=== PATIENT | male | born 1995 | race Hispanic/Latino ===

== ENCOUNTER 2016-12-02 00:04 | Emergency (ER) | payer OTHER ==
[~2016-12-02] VITALS: Ht 188 cm; Wt 73.4 kg
[~2016-12-02 00:04] MED LIST: AUGMENTIN875 MG PO; CELEBREX100 MG PO; CLINDAMYCIN HC150 MG PO; DIAZEPAM5 MG PO; FLEXERIL10 MG PO; FLOVENT 11120 INHALA IH; LIDOCAINE20 MG/1 M5 PO; LIDODERM 5% P1 PATCH TD; MOBIC7.5 MG PO; MONTELUKAST SOD10 MG PO; MOTRIN600 MG PO; MOTRIN800 MG PO; NAPROSYN375 MG PO; NORCO 5/3251 TABLET PO; NORCO 7.5/321 TABLET PO; OXCARBAZEPINE300 MG PO; OXCARBAZEPINE600 MG PO; OXYCODONE HCL5 MG PO; PEN-VEE K,VEET500 MG PO; PREDNISONE20 M1 PO; PREDNISONE20 MG PO; PREDNISONE50 MG PO; PREVACID30 MG PO; PROVENTIL,200 INHALA IH; SINGULAIR10 MG PO; SINGULAIR5 MG PO; SKELAXIN800 MG PO; TAGAMET200 MG PO; TRILEPTAL150 MG PO; TRILEPTAL300 MG PO; ULTRAM50 MG PO; VALIUM5 MG PO; VENTOLIN HFA18 GM IH; VYVANSE20 MG PO; VYVANSE70 MG PO; ZOLOFT50 M1 PO
[2016-12-02] MEDS ORDERED: NORCO 5/3251 TABLET PO (00:32)
[2016-12-02] MEDS ORDERED: ZOFRAN ODT4 MG PO (00:32)
[2016-12-02] MEDS ORDERED: PEN-VEE K,VEET500 MG PO (00:32)
[2016-12-02 00:37] VITALS: BP 120/76
== END 2016-12-02 00:45 | disposition home or self-care (01) ==
LOC: EME 00:04
DX: K04.7 Periapical abscess without sinus (principal); F17.200 Nicotine dependence, unspecified, uncomplicated; Z88.1 Allergy status to other antibiotic agents
CPT/HCPCS: 99281; 99284

== ENCOUNTER 2016-12-18 15:05 | Emergency (ER) | payer OTHER ==
[~2016-12-18] VITALS: Ht 188 cm; Wt 65.3 kg
[~2016-12-18 15:05] MED LIST changes: +ZOFRAN ODT4 MG PO
[2016-12-18] MEDS ORDERED: TRILEPTAL300 MG PO (15:12)
[2016-12-18] MEDS ORDERED: VYVANSE60 MG PO (15:13)
[2016-12-18 16:42] LABS: HEMATOCRIT 42.9 % (38.0-50.0); MCH 26.4 PG (29.0-34.0); MCHC 33.8 G/DL (30.0-36.0); MCV 78.1 FL (86-99); PLATELET COUNT 302 K/uL (156-360); RBC DIS.WIDTH-CV 14.1 % (11.8-14.6); RBC DIS.WIDTH-SD 39.6 % (39-53); RED BLOOD COUNT 5.49 M/uL (4.00-5.50); WHITE BLOOD COUNT 11.6 K/uL (4.1-10.2)
[2016-12-18 16:50] LABS: CHLORIDE 106 mEq/L (99-109); SODIUM 139 mEq/L (136-147)
[2016-12-18 16:52] LABS: GLUCOSE 120 mg/dL (70-99)
[2016-12-18 16:53] LABS: ANION GAP 15 MEQ/L (2-14)
[2016-12-18 16:56] LABS: GFR ESTIMATE (CALCULATED) > 59 mL/min/; UREA NITROGEN (BUN) 13 mg/dL (9-23)
[2016-12-18 16:58] LABS: CREATINE KINASE 190 IU/L (1-294); TOTAL CK 190 IU/L (1-294)
[2016-12-18 17:04] LABS: CK-MB 2.2 ng/mL (0.0-4.9)
[2016-12-18 17:35] LABS: SAMPLE HEMOLYSIS CHECK 0; SAMPLE ICTERIC CHECK 0; SAMPLE LIPEMIA CHECK 0
[2016-12-18 18:08] VITALS: BP 128/64
[2016-12-18] MEDS ORDERED: LIDOCAINE20 MG/1 M5 PO (18:24)
== END 2016-12-18 18:37 | disposition home or self-care (01) ==
LOC: EME 15:05
PROVIDERS: Emergency Medicine
DX: R56.9 Unspecified convulsions (principal); S01.512A Laceration without foreign body of oral cavity, initial encounter; X58.XXXA Exposure to other specified factors, initial encounter; J45.909 Unspecified asthma, uncomplicated; K21.9 Gastro-esophageal reflux disease without esophagitis; F17.200 Nicotine dependence, unspecified, uncomplicated
CPT/HCPCS: 80048; 80156; 82550; 82553; 85027; 99281; 99284

== ENCOUNTER 2016-12-22 12:40 | Emergency (ER) | payer OTHER ==
[~2016-12-22] VITALS: Ht 185.4 cm; Wt 71.8 kg
[~2016-12-22 12:40] MED LIST changes: +VYVANSE60 MG PO
[2016-12-22 12:43] VITALS: BP 145/84
[2016-12-22 14:31] LABS: HEMATOCRIT 42.7 % (38.0-50.0); MCH 26.2 PG (29.0-34.0); MCHC 32.8 G/DL (30.0-36.0); MEAN PLAT.VOLUME 10.2 uM^3 (9.0-12.4); PLATELET COUNT 236 K/uL (156-360); RBC DIS.WIDTH-CV 13.8 % (11.8-14.6); RBC DIS.WIDTH-SD 39.8 % (39-53); RED BLOOD COUNT 5.34 M/uL (4.00-5.50); WHITE BLOOD COUNT 6.1 K/uL (4.1-10.2)
[2016-12-22 14:38] LABS: CHLORIDE 102 mEq/L (99-109); POTASSIUM 3.8 mEq/L (3.7-5.4); SODIUM 138 mEq/L (136-147)
[2016-12-22 14:39] LABS: GLUCOSE 105 mg/dL (70-99)
[2016-12-22 14:41] LABS: ANION GAP 11 MEQ/L (2-14)
[2016-12-22 14:43] LABS: GFR ESTIMATE (CALCULATED) > 59 mL/min/
[2016-12-22 14:44] LABS: UREA NITROGEN (BUN) 7 mg/dL (9-23)
[2016-12-22 15:23] LABS: ADD MIUA? YES; BILIRUBIN NEGATIVE; BLOOD TRACE; COLOR YELLOW ((YELLOW)); GLUCOSE (STRIP) NEGATIVE; KETONES NEGATIVE; LEUKOCYTES NEGATIVE; NITRITE NEGATIVE; PROTEIN (STRIP) NEGATIVE; SPECIFIC GRAVITY 1.017 (1.000-1.030); UROBILINOGEN 0.2 MG/DL (0.2-1.0)
[2016-12-22 15:41] LABS: THC CANNABINOIDS PRESUMPTIVE POSITIVE (50 ng/mL)
[2016-12-22 15:42] LABS: ADD MEDTOX COMMENT Y; AMPHETAMINE PRESUMPTIVE POSITIVE (500 ng/mL); BARBITURATES NEGATIVE (200 ng/mL); BENZODIAZEPINES PRESUMPTIVE POSITIVE (150 ng/mL); COCAINE PRESUMPTIVE POSITIVE (150 ng/mL); INTERNAL CONTROLS VALID? YES; METHADONE NEGATIVE (200 ng/mL); METHAMPHETAMINE PRESUMPTIVE POSITIVE (500 ng/mL); OPIATES (MORPHINE) PRESUMPTIVE POSITIVE (100 ng/mL); OXYCODONE PRESUMPTIVE POSITIVE (100 ng/mL); PHENCYCLIDINE NEGATIVE (25 ng/mL); PROPOXYPHENE NEGATIVE (300 ng/mL); TRICYCLIC ANTIDEPRESSANTS NEGATIVE (300 ng/mL)
[2016-12-22 16:04] LABS: RED BLOOD CELLS 0-5 /HPF (0-5); WHITE BLOOD CELLS RARE /HPF (0-5)
[2016-12-22 16:05] LABS: AMORPHOUS URATES CRYSTALS 1+; BACTERIA RARE; CALCIUM OXALATE CRYSTALS RARE; CASTS NONE SEEN /LPF; CRYSTALS PRESENT; EPITHELIAL CELLS RARE; MUCUS RARE; UCUL ADDED? NO
[2016-12-22 16:32] LABS: BENZODIAZEPINES, URINE SCREEN POSITIVE (200 ng/mL)
== END 2016-12-22 15:50 | disposition left against medical advice (07) ==
LOC: EME 12:40
PROVIDERS: Physician Assistant
DX: F19.10 Other psychoactive substance abuse, uncomplicated (principal); R51 Headache; K04.7 Periapical abscess without sinus; M54.9 Dorsalgia, unspecified; F17.200 Nicotine dependence, unspecified, uncomplicated
CPT/HCPCS: 70450; 72100; 80048; 80156; 81003; 84999; 85027; 99281; 99284

== ENCOUNTER 2017-02-06 11:41 | Emergency (ER) | payer OTHER ==
[~2017-02-06] VITALS: Ht 188 cm; Wt 73.8 kg
[2017-02-06] MEDS ORDERED: PERCOCET 5/31 TABLET PO (12:04)
[2017-02-06] MEDS ORDERED: PEN-VEE K,VEET500 MG PO (12:04)
[2017-02-06] MEDS ORDERED: DIVALPROEX SOD500 MG PO (12:18)
[2017-02-06] MEDS ORDERED: OXCARBAZEPINE300 MG PO (12:18)
[2017-02-06 12:21] VITALS: BP 116/84
== END 2017-02-06 12:22 | disposition home or self-care (01) ==
LOC: EME 11:41 → RME 11:41
DX: K02.9 Dental caries, unspecified (principal); R22.0 Localized swelling, mass and lump, head; J45.909 Unspecified asthma, uncomplicated; K21.9 Gastro-esophageal reflux disease without esophagitis; R56.9 Unspecified convulsions; F17.200 Nicotine dependence, unspecified, uncomplicated
CPT/HCPCS: 99281; 99284

== ENCOUNTER 2017-04-20 23:36 | Emergency (ER) | payer OTHER ==
[~2017-04-20] VITALS: Ht 188 cm; Wt 70.9 kg
[~2017-04-20 23:36] MED LIST changes: +DIVALPROEX SOD500 MG PO; +PERCOCET 5/31 TABLET PO
[2017-04-21] MEDS ORDERED: PEN-VEE K,VEET500 MG PO (02:27)
[2017-04-21] MEDS ORDERED: NORCO 5/3251 TABLET PO (02:27)
[2017-04-21 02:37] VITALS: BP 125/80
== END 2017-04-21 02:43 | disposition home or self-care (01) ==
LOC: EME 23:36
DX: K08.89 Other specified disorders of teeth and supporting structures (principal); F17.200 Nicotine dependence, unspecified, uncomplicated
CPT/HCPCS: 99281; 99284

== ENCOUNTER 2017-07-30 16:39 | Emergency (ER) | payer OTHER ==
[~2017-07-30] VITALS: Ht 188 cm; Wt 67.9 kg
[2017-07-30 17:39] LABS: EOSINOPHIL (%) 1.4 % (0-5); EOSINOPHIL COUNT 0.1 K/uL (0-0.3); HEMATOCRIT 44.6 % (38.0-50.0); IMMATURE GRANULOCYTE (%) 0.2 % (0.0-0.7); INSTRUMENT ABS NEUTROPHIL CT 3.2 K/uL; LYMPHOCYTE COUNT 2.2 K/uL (1.0-2.8); MCH 26.2 PG (29.0-34.0); MCHC 32.1 G/DL (30.0-36.0); MCV 81.7 FL (86-99); MEAN PLAT.VOLUME 9.9 uM^3 (9.0-12.4); MONOCYTE (%) 11.6 % (3-12); MONOCYTE COUNT 0.7 K/uL (0-0.8); NEUTROPHIL COUNT 3.2 K/uL (1.8-6.4); PLATELET COUNT 269 K/uL (156-360); RBC DIS.WIDTH-CV 13.2 % (11.8-14.6); RBC DIS.WIDTH-SD 39.3 % (39-53); RED BLOOD COUNT 5.46 M/uL (4.00-5.50); WHITE BLOOD COUNT 6.3 K/uL (4.1-10.2)
[2017-07-30 17:53] LABS: CHLORIDE 105 mEq/L (99-109); POTASSIUM 4.1 mEq/L (3.7-5.4); SODIUM 141 mEq/L (136-147)
[2017-07-30 17:55] LABS: GLUCOSE 98 mg/dL (70-99)
[2017-07-30 17:56] LABS: ANION GAP 10 MEQ/L (2-14)
[2017-07-30 17:59] LABS: GFR ESTIMATE (CALCULATED) > 59 mL/min/
[2017-07-30 18:00] LABS: UREA NITROGEN (BUN) 9 mg/dL (9-23)
[2017-07-30 19:01] LABS: ADD MIUA? YES; BILIRUBIN NEGATIVE; BLOOD SMALL; COLOR YELLOW ((YELLOW)); GLUCOSE (STRIP) NEGATIVE; KETONES NEGATIVE; LEUKOCYTES NEGATIVE; NITRITE NEGATIVE; PROTEIN (STRIP) NEGATIVE; SPECIFIC GRAVITY 1.013 (1.000-1.030); UROBILINOGEN 0.2 MG/DL (0.2-1.0)
[2017-07-30 19:31] LABS: BACTERIA RARE /HPF; EPITHELIAL CELLS NONE SEEN /HPF; MUCUS NONE SEEN /LPF; WHITE BLOOD CELLS 0-5 /HPF (0-5)
[2017-07-30] MEDS ORDERED: DEPAKOTE500 MG PO (20:03)
[2017-07-30 21:57] VITALS: BP 120/74
== END 2017-07-30 22:06 | disposition home or self-care (01) ==
LOC: EME 16:39
PROVIDERS: Emergency Medicine
DX: R56.9 Unspecified convulsions (principal); F17.200 Nicotine dependence, unspecified, uncomplicated; K21.9 Gastro-esophageal reflux disease without esophagitis; J45.909 Unspecified asthma, uncomplicated
CPT/HCPCS: 80048; 80164; 81003; 85025; 93005; 99281; 99285; J2405; J7030

== ENCOUNTER 2017-10-18 13:12 | Emergency (ER) | payer OTHER ==
[~2017-10-18] VITALS: Ht 188 cm; Wt 74.5 kg
[~2017-10-18 13:12] MED LIST changes: +DEPAKOTE500 MG PO
[2017-10-18 15:58] VITALS: BP 123/82
== END 2017-10-18 15:59 | disposition left against medical advice (07) ==
LOC: EME 13:12
DX: G40.909 Epilepsy, unspecified, not intractable, without status epilepticus (principal); S09.90XA Unspecified injury of head, initial encounter; W22.09XA Striking against other stationary object, initial encounter; Y92.002 Bathroom of unspecified non-institutional (private) residence as the place of occurrence of the external cause; J45.909 Unspecified asthma, uncomplicated; F32.9 Major depressive disorder, single episode, unspecified; K21.9 Gastro-esophageal reflux disease without esophagitis; M41.9 Scoliosis, unspecified; F17.200 Nicotine dependence, unspecified, uncomplicated; Z88.6 Allergy status to analgesic agent; Z88.1 Allergy status to other antibiotic agents
CPT/HCPCS: 80048; 80156; 80184; 80185; 81003; 85027; 99281; 99284

== ENCOUNTER 2018-02-11 21:00 | Emergency (ER) | payer OTHER ==
[~2018-02-11] VITALS: Ht 188 cm; Wt 75.5 kg
[2018-02-11] MEDS ORDERED: LIDODERM 5% P1 PATCH TD (22:15)
[2018-02-11] MEDS ORDERED: VALIUM5 MG PO (22:15)
[2018-02-11] MEDS ORDERED: INDOCIN50 MG PO (22:15)
[2018-02-11 23:25] VITALS: BP 138/80
== END 2018-02-11 23:26 | disposition home or self-care (01) ==
LOC: EME 21:00
DX: S39.012A Strain of muscle, fascia and tendon of lower back, initial encounter (principal); X50.0XXA Overexertion from strenuous movement or load, initial encounter; Y93.H1 Activity, digging, shoveling and raking; Z88.6 Allergy status to analgesic agent; Z88.1 Allergy status to other antibiotic agents
CPT/HCPCS: 99281; 99284; J2270

== ENCOUNTER 2018-03-23 03:59 | Emergency (ER) | payer OTHER ==
[~2018-03-23] VITALS: Ht 188 cm; Wt 73.6 kg
[~2018-03-23 03:59] MED LIST changes: +INDOCIN50 MG PO
[2018-03-23] MEDS ORDERED: NORCO 5/3251 TABLET PO (04:48)
[2018-03-23 04:58] VITALS: BP 122/77
== END 2018-03-23 04:58 | disposition home or self-care (01) ==
LOC: EME 03:59
PROC: 2W3CX1Z Immobilization of Right Lower Arm using Splint (ICD-10-PCS; principal; 2018-03-23)
DX: S63.91XA Sprain of unspecified part of right wrist and hand, initial encounter (principal); W22.09XA Striking against other stationary object, initial encounter; Z88.6 Allergy status to analgesic agent; Z88.1 Allergy status to other antibiotic agents; Z88.8 Allergy status to other drugs, medicaments and biological substances
CPT/HCPCS: 73130; 99281; 99283

== ENCOUNTER 2018-03-31 14:32 | Emergency (ER) | payer OTHER ==
[~2018-03-31] VITALS: Ht 188 cm; Wt 70.9 kg
[2018-03-31 15:25] LABS: HEMATOCRIT 43.7 % (38.0-50.0); HEMOGLOBIN 14.3 G/DL (12.5-16.6); MCH 27.2 PG (29.0-34.0); MCHC 32.7 G/DL (30.0-36.0); MCV 83.1 FL (86-99); PLATELET COUNT 271 K/uL (156-360); RBC DIS.WIDTH-CV 13.5 % (11.8-14.6); RBC DIS.WIDTH-SD 41.1 % (39-53); RED BLOOD COUNT 5.26 M/uL (4.00-5.50); WHITE BLOOD COUNT 6.3 K/uL (4.1-10.2)
[2018-03-31 15:35] LABS: ALBUMIN 4.8 g/dL (3.2-4.8)
[2018-03-31 15:36] LABS: CHLORIDE 107 mEq/L (99-109); POTASSIUM 4.1 mEq/L (3.7-5.4); SODIUM 142 mEq/L (136-147)
[2018-03-31 15:38] LABS: GLUCOSE 101 mg/dL (70-99); TOTAL PROTEIN 8.1 g/dL (6.4-8.3)
[2018-03-31 15:40] LABS: TOTAL BILIRUBIN 0.3 mg/dL (0.0-1.0)
[2018-03-31 15:41] LABS: ALKALINE PHOSPHATASE 68 IU/L (3-129)
[2018-03-31 15:42] LABS: CREATININE 1.1 mg/dL (0.6-1.3); GFR ESTIMATE (CALCULATED) > 59 mL/min/ (58.99-99999)
[2018-03-31 15:43] LABS: AST (GOT) 17 IU/L (2-34); UREA NITROGEN (BUN) 9 mg/dL (9-23)
[2018-03-31 15:45] LABS: ALT (GPT) 18 IU/L (3-49)
[2018-03-31] MEDS ORDERED: REMERON15 M2 PO (16:32)
[2018-03-31 16:46] VITALS: BP 104/63
== END 2018-03-31 16:48 | disposition home or self-care (01) ==
LOC: EME 14:32
PROVIDERS: Nurse Practitioner Family
DX: F43.9 Reaction to severe stress, unspecified (principal); R10.13 Epigastric pain; G47.00 Insomnia, unspecified; F43.23 Adjustment disorder with mixed anxiety and depressed mood; J45.909 Unspecified asthma, uncomplicated; K21.9 Gastro-esophageal reflux disease without esophagitis; M41.9 Scoliosis, unspecified; F17.200 Nicotine dependence, unspecified, uncomplicated; Z88.6 Allergy status to analgesic agent; Z88.1 Allergy status to other antibiotic agents
CPT/HCPCS: 80053; 85027; 90839; 99281; 99284

== ENCOUNTER 2018-04-08 07:22 | Observation (INO) | payer OTHER ==
[~2018-04-08] VITALS: Ht 188 cm; Wt 70.3 kg
[~2018-04-08 07:22] MED LIST changes: +REMERON15 M2 PO
[2018-04-08 08:09] LABS: BASOPHIL (%) 0.1 % (0-1); EOSINOPHIL (%) 0.6 % (0-5); EOSINOPHIL COUNT 0.1 K/uL (0-0.3); HEMATOCRIT 40.2 % (38.0-50.0); HEMOGLOBIN 13.1 G/DL (12.5-16.6); IMMATURE GRANULOCYTE (%) 0.2 % (0.0-0.7); LYMPHOCYTE COUNT 1.9 K/uL (1.0-2.8); MCH 27.3 PG (29.0-34.0); MCHC 32.6 G/DL (30.0-36.0); MCV 83.9 FL (86-99); MONOCYTE (%) 10.4 % (3-12); MONOCYTE COUNT 0.9 K/uL (0-0.8); NEUTROPHIL (%) 67.7 % (45-76); PLATELET COUNT 210 K/uL (156-360); RBC DIS.WIDTH-CV 13.6 % (11.8-14.6); RBC DIS.WIDTH-SD 42.2 % (39-53); RED BLOOD COUNT 4.79 M/uL (4.00-5.50); WHITE BLOOD COUNT 8.8 K/uL (4.1-10.2)
[2018-04-08 08:46] LABS: CHLORIDE 106 MEQ/L (99-109); GFR ESTIMATE (CALCULATED) > 59 mL/min/ (58.99-99999); GLUCOSE 106 mg/dL (70-99); POTASSIUM 3.7 MEQ/L (3.7-5.4); SODIUM 138 MEQ/L (136-147); UREA NITROGEN (BUN) 9 mg/dL (9-23)
[2018-04-08] MEDS ORDERED: VIMPAT150 MG PO (13:10)
[2018-04-08] MEDS ORDERED: VENTOLIN HFA18 GM IH (13:11)
[2018-04-08] MEDS ORDERED: MIRTAZAPINE15 MG PO (13:17)
[2018-04-08 14:38] VITALS: BP 124/62
[2018-04-08 19:40] VITALS: BP 116/58
[2018-04-08 23:41] VITALS: BP 109/58
[2018-04-09] MEDS ORDERED: ALBUTEROL1.25 MG/3 IH (20:34)
[2018-04-09] MEDS ORDERED: MELATIN3 MG PO (20:36)
== END 2018-04-09 00:18 | disposition left against medical advice (07) ==
LOC: EME 07:22 → EDOF 12:50 → 4SOUTH 12:50 → ENRESERV 12:51 → 4SOUTH 14:17 → ENRESERV 15:59 → 4SOUTH 16:43
PROVIDERS: Emergency Medicine; Hospitalist
DX: G40.909 Epilepsy, unspecified, not intractable, without status epilepticus (principal); F43.25 Adjustment disorder with mixed disturbance of emotions and conduct; F32.9 Major depressive disorder, single episode, unspecified; S61.421A Laceration with foreign body of right hand, initial encounter; Z91.14 Patient's other noncompliance with medication regimen; F12.90 Cannabis use, unspecified, uncomplicated; Z88.8 Allergy status to other drugs, medicaments and biological substances; Z82.3 Family history of stroke; Z83.3 Family history of diabetes mellitus; Z88.1 Allergy status to other antibiotic agents; Z88.6 Allergy status to analgesic agent; F17.200 Nicotine dependence, unspecified, uncomplicated
CPT/HCPCS: 70450; 73130; 80048; 80306 90; 81003; 82948; 84146; 85025; 93005; 95819; 99202; 99281; 99285; G0378; J1953; J2060; J2250; J7030; J7050

== ENCOUNTER 2018-04-09 02:48 | Observation (INO) | payer OTHER ==
[~2018-04-09] VITALS: Ht 188 cm; Wt 81.6 kg
[~2018-04-09 02:48] MED LIST changes: +MIRTAZAPINE15 MG PO; +VIMPAT150 MG PO
[2018-04-09 03:49] LABS: BASOPHIL (%) 0.1 % (0-1); EOSINOPHIL (%) 0.8 % (0-5); EOSINOPHIL COUNT 0.1 K/uL (0-0.3); HEMATOCRIT 39.8 % (38.0-50.0); IMMATURE GRANULOCYTE (%) 0.2 % (0.0-0.7); LYMPHOCYTE COUNT 1.7 K/uL (1.0-2.8); MCH 27.4 PG (29.0-34.0); MCHC 32.7 G/DL (30.0-36.0); MONOCYTE (%) 9.6 % (3-12); MONOCYTE COUNT 0.8 K/uL (0-0.8); NEUTROPHIL (%) 69.3 % (45-76); NEUTROPHIL COUNT 5.9 K/uL (1.8-6.4); PLATELET COUNT 208 K/uL (156-360); RBC DIS.WIDTH-CV 13.8 % (11.8-14.6); RBC DIS.WIDTH-SD 42.9 % (39-53); RED BLOOD COUNT 4.74 M/uL (4.00-5.50); WHITE BLOOD COUNT 8.5 K/uL (4.1-10.2)
[2018-04-09 04:05] LABS: CHLORIDE 105 mEq/L (99-109); POTASSIUM 3.8 mEq/L (3.7-5.4); SODIUM 142 mEq/L (136-147)
[2018-04-09 04:06] LABS: GLUCOSE 112 mg/dL (70-99)
[2018-04-09 04:10] LABS: GFR ESTIMATE (CALCULATED) > 59 mL/min/ (58.99-99999); SERUM ETHYL ALCOHOL < 10 mg/dL
[2018-04-09 04:11] LABS: UREA NITROGEN (BUN) 8 mg/dL (9-23)
[2018-04-09 04:13] LABS: CREATINE KINASE 1854 IU/L (1-294)
[2018-04-09 05:25] LABS: APPEARANCE CLEAR ((CLEAR)); BILIRUBIN NEGATIVE; BLOOD NEGATIVE; COLOR YELLOW ((YELLOW)); GLUCOSE (STRIP) NEGATIVE; KETONES 5; LEUKOCYTES TRACE; NITRITE NEGATIVE; PROTEIN (STRIP) NEGATIVE
[2018-04-09 05:37] LABS: BACTERIA NONE SEEN /HPF; EPITHELIAL CELLS RARE /HPF; MUCUS TRACE /LPF; UCUL ADDED? YES
[2018-04-09 05:44] LABS: AMPHETAMINE NEGATIVE (500 ng/mL); BARBITURATES NEGATIVE (200 ng/mL); BENZODIAZEPINES PRESUMPTIVE POSITIVE (150 ng/mL); BUPRENORPHINE NEGATIVE (10 ng/mL); COCAINE PRESUMPTIVE POSITIVE (150 ng/mL); METHADONE NEGATIVE (200 ng/mL); METHAMPHETAMINE NEGATIVE (500 ng/mL); OPIATES (MORPHINE) PRESUMPTIVE POSITIVE (100 ng/mL); OXYCODONE PRESUMPTIVE POSITIVE (100 ng/mL); PHENCYCLIDINE NEGATIVE (25 ng/mL); PROPOXYPHENE NEGATIVE (300 ng/mL); THC CANNABINOIDS PRESUMPTIVE POSITIVE (50 ng/mL); TRICYCLIC ANTIDEPRESSANTS NEGATIVE (300 ng/mL)
[2018-04-09 06:30] LABS: BENZODIAZEPINES, URINE SCREEN POSITIVE (200 ng/mL)
[2018-04-09 07:54] LABS: MAGNESIUM 2.1 mg/dl (1.3-2.7)
[2018-04-09 13:18] VITALS: BP 132/83
[2018-04-09 15:45] VITALS: BP 125/77
[2018-04-09 19:29] VITALS: BP 121/65
[2018-04-09] MEDS ORDERED: ALBUTEROL1.25 MG/3 IH (20:34)
[2018-04-09] MEDS ORDERED: MELATIN3 MG PO (20:36)
[2018-04-10 01:00] VITALS: BP 124/70
[2018-04-10 05:17] LABS: BASOPHIL (%) 0 % (0-1); EOSINOPHIL (%) 1.7 % (0-5); EOSINOPHIL COUNT 0.1 K/uL (0-0.3); HEMATOCRIT 36.6 % (38.0-50.0); HEMOGLOBIN 11.5 G/DL (12.5-16.6); IMMATURE GRANULOCYTE (%) 0.2 % (0.0-0.7); LYMPHOCYTE (%) 38.9 % (15-42); LYMPHOCYTE COUNT 2.3 K/uL (1.0-2.8); MCH 26.4 PG (29.0-34.0); MCHC 31.4 G/DL (30.0-36.0); MCV 84.1 FL (86-99); MONOCYTE (%) 10.6 % (3-12); MONOCYTE COUNT 0.6 K/uL (0-0.8); NEUTROPHIL (%) 48.6 % (45-76); NEUTROPHIL COUNT 2.9 K/uL (1.8-6.4); PLATELET COUNT 198 K/uL (156-360); RBC DIS.WIDTH-CV 13.6 % (11.8-14.6); RED BLOOD COUNT 4.35 M/uL (4.00-5.50); WHITE BLOOD COUNT 5.9 K/uL (4.1-10.2)
[2018-04-10 05:34] LABS: ALBUMIN 3.9 G/DL (3.2-4.8); CHLORIDE 111 MEQ/L (99-109); POTASSIUM 3.8 MEQ/L (3.7-5.4); SODIUM 143 MEQ/L (136-147); TOTAL BILIRUBIN 0.6 MG/DL (0.0-1.0)
[2018-04-10 05:39] LABS: ALKALINE PHOSPHATASE 49 IU/L (3-129); ALT (GPT) 21 IU/L (3-49); AST (GOT) 35 IU/L (2-34); CREATININE 0.9 MG/DL (0.6-1.3); GFR ESTIMATE (CALCULATED) > 59 mL/min/ (58.99-99999); GLUCOSE 87 mg/dL (70-99); TOTAL PROTEIN 6.1 G/DL (6.4-8.3); UREA NITROGEN (BUN) 3 mg/dL (9-23)
[2018-04-10 07:12] LABS: CREATINE KINASE 855 IU/L (1-294)
[2018-04-10 07:46] VITALS: BP 117/74
[2018-04-10 23:42] VITALS: BP 125/73
[2018-04-11 05:51] LABS: HEMATOCRIT 38.2 % (38.0-50.0); HEMOGLOBIN 12.2 G/DL (12.5-16.6); MCV 84.3 FL (86-99)
[2018-04-11 06:19] LABS: CHLORIDE 109 MEQ/L (99-109); GFR ESTIMATE (CALCULATED) > 59 mL/min/ (58.99-99999); GLUCOSE 86 mg/dL (70-99); POTASSIUM 4.2 MEQ/L (3.7-5.4); SODIUM 144 MEQ/L (136-147); UREA NITROGEN (BUN) 3 mg/dL (9-23)
[2018-04-11 07:46] VITALS: BP 107/57
[2018-04-11] MEDS ORDERED: CEPHALEXIN500 MG PO (10:24)
[2018-04-11] MEDS ORDERED: NICOTINE PATCH1 EAC1 TD (10:25)
[2018-04-11] MEDS ORDERED: ESCITALOPRAM OX10 MG PO (10:29)
[2018-04-11] MEDS ORDERED: TRAZODONE HCL50 MG PO (10:30)
[2018-04-11] MEDS ORDERED: KEPPRA750 MG PO (10:31)
[2018-04-11] MEDS ORDERED: PERCOCET 2.51 TABLET PO (10:37)
== END 2018-04-11 11:20 | disposition home or self-care (01) ==
LOC: EME 02:48 → EDOF 05:48 → 5SOUTH 05:48 → EDOF 05:48 → ENRESERV 05:51 → CANRESERV 08:59 → ENRESERV 08:59 → 5SOUTH 12:47
PROVIDERS: Emergency Medicine; Hospitalist; Orthopaedic Surgery Sports Medicine
PROC: 0RC Upper Joints, Extirpation (ICD-10-PCS; principal; 2018-04-10)
DX: G40.909 Epilepsy, unspecified, not intractable, without status epilepticus (principal); J45.909 Unspecified asthma, uncomplicated; F32.9 Major depressive disorder, single episode, unspecified; F19.10 Other psychoactive substance abuse, uncomplicated; S61.421A Laceration with foreign body of right hand, initial encounter; M79.5 Residual foreign body in soft tissue; M62.82 Rhabdomyolysis; M79.641 Pain in right hand; F43.22 Adjustment disorder with anxiety; Z63.4 Disappearance and death of family member; F14.10 Cocaine abuse, uncomplicated; F12.10 Cannabis abuse, uncomplicated; F17.210 Nicotine dependence, cigarettes, uncomplicated; Z82.3 Family history of stroke; Z82.49 Family history of ischemic heart disease and other diseases of the circulatory system; W25.XXXA Contact with sharp glass, initial encounter; Z88.8 Allergy status to other drugs, medicaments and biological substances
CPT/HCPCS: 73120; 73130; 76000; 80048; 80053; 81003; 82550; 82550 91; 83735; 84999; 85014; 85018; 85025; 87086; 94640; 99202; 99281; 99285; G0378; G0480; J0131; J0690; J1170; J1953; J2060; J2250; J3010; J7030; J7040; J7050

== ENCOUNTER 2018-04-14 03:01 | Emergency (ER) | payer OTHER ==
[~2018-04-14] VITALS: Ht 188 cm; Wt 77.0 kg
[~2018-04-14 03:01] MED LIST changes: +ALBUTEROL1.25 MG/3 IH; +CEPHALEXIN500 MG PO; +ESCITALOPRAM OX10 MG PO; +KEPPRA750 MG PO; +MELATIN3 MG PO; +NICOTINE PATCH1 EAC1 TD; +PERCOCET 2.51 TABLET PO; +TRAZODONE HCL50 MG PO
[2018-04-14 03:34] LABS: HEMATOCRIT 40.2 % (38.0-50.0); HEMOGLOBIN 13.3 G/DL (12.5-16.6); MCH 27.3 PG (29.0-34.0); MCHC 33.1 G/DL (30.0-36.0); MCV 82.5 FL (86-99); RBC DIS.WIDTH-CV 13.2 % (11.8-14.6); RBC DIS.WIDTH-SD 39.9 % (39-53); RED BLOOD COUNT 4.87 M/uL (4.00-5.50)
[2018-04-14 03:51] LABS: PLATELET COUNT 261 K/uL (156-360)
[2018-04-14 03:57] LABS: ALBUMIN 4.5 g/dL (3.2-4.8); CHLORIDE 105 mEq/L (99-109); POTASSIUM 3.6 mEq/L (3.7-5.4); SODIUM 140 mEq/L (136-147)
[2018-04-14 03:58] LABS: MAGNESIUM 2.4 mg/dL (1.3-2.7)
[2018-04-14 04:00] LABS: GLUCOSE 93 mg/dL (70-99); TOTAL PROTEIN 7.7 g/dL (6.4-8.3)
[2018-04-14 04:01] LABS: TOTAL BILIRUBIN 0.7 mg/dL (0.0-1.0)
[2018-04-14 04:03] LABS: ALKALINE PHOSPHATASE 61 IU/L (3-129); GFR ESTIMATE (CALCULATED) > 59 mL/min/ (58.99-99999)
[2018-04-14 04:04] LABS: UREA NITROGEN (BUN) 6 mg/dL (9-23)
[2018-04-14 04:05] LABS: AST (GOT) 26 IU/L (2-34)
[2018-04-14 04:06] LABS: ALT (GPT) 20 IU/L (3-49); CREATINE KINASE 266 IU/L (1-294)
[2018-04-14 04:12] LABS: TROP-I INTERPRETATION NEGATIVE; TROPONIN-I < 0.01 ng/mL (0.0-0.30)
[2018-04-14 05:52] VITALS: BP 118/67
== END 2018-04-14 05:54 | disposition home or self-care (01) ==
LOC: EME → EDBD 03:01 → EME 03:01
PROVIDERS: Emergency Medicine
DX: R07.89 Other chest pain (principal); I49.8 Other specified cardiac arrhythmias; R94.31 Abnormal electrocardiogram [ECG] [EKG]; K21.9 Gastro-esophageal reflux disease without esophagitis; M41.9 Scoliosis, unspecified; J45.909 Unspecified asthma, uncomplicated; G40.909 Epilepsy, unspecified, not intractable, without status epilepticus; F32.9 Major depressive disorder, single episode, unspecified; F17.200 Nicotine dependence, unspecified, uncomplicated; Z88.1 Allergy status to other antibiotic agents; Z88.6 Allergy status to analgesic agent; Z88.8 Allergy status to other drugs, medicaments and biological substances
CPT/HCPCS: 71045; 80053; 82550; 83735; 84484; 85027; 93005; 99281; 99285

== ENCOUNTER 2018-06-28 01:01 | Emergency (ER) | payer OTHER ==
[~2018-06-28] VITALS: Ht 188 cm; Wt 72.5 kg
[2018-06-28 02:41] VITALS: BP 136/77
== END 2018-06-28 02:41 | disposition home or self-care (01) ==
LOC: EME 01:01
DX: M79.641 Pain in right hand (principal); F17.200 Nicotine dependence, unspecified, uncomplicated; Z88.6 Allergy status to analgesic agent; Z88.1 Allergy status to other antibiotic agents
CPT/HCPCS: 73130; 99281; 99283

== ENCOUNTER 2018-07-19 00:47 | Emergency (ER) | payer OTHER ==
[~2018-07-19] VITALS: Ht 188 cm; Wt 71.8 kg
[2018-07-19] MEDS ORDERED: PEN-VEE K,VEET500 MG PO (02:28)
[2018-07-19] MEDS ORDERED: PERCOCET 5/31 TABLET PO (02:28)
[2018-07-19 02:48] VITALS: BP 124/74
== END 2018-07-19 02:49 | disposition home or self-care (01) ==
LOC: EME 00:47
PROC: 0C9XXZ0 Drainage of Lower Tooth, External Approach, Single (ICD-10-PCS; principal; 2018-07-19)
DX: K04.7 Periapical abscess without sinus (principal); Z88.6 Allergy status to analgesic agent
CPT/HCPCS: 99281; 99284